=== PATIENT | male | born 1955 | race Caucasian/White ===

== ENCOUNTER 2019-02-09 08:14 | Inpatient (IN) | payer OTHER ==
[~2019-02-09] VITALS: Ht 170.2 cm; Wt 83.6 kg
[2019-02-09] MEDS ORDERED: LABETALOL 5MG/ML, 20ML IVPush STA (08:36)
--- NOTE | 2019-02-09 08:45 | NUR ---
Lala RN: MD Whitney at bedside to assess pt, pt reports inintal onset of symptoms as 1500 yesterday
[2019-02-09] MEDS ORDERED: LABETALOL 5MG/ML, 20ML ONE (08:57)
--- NOTE | 2019-02-09 09:15 | NUR ---
Break RN: Pt to CT in NAD, report to primary RN Sierra
[2019-02-09 09:24] LABS: BASOPHILS # (AUTO) 0.02 x10^3/uL (0-0.1); BASOPHILS % (AUTO) 0 % (0-1); EOSINOPHILS # (AUTO) 0.13 x10^3/uL (0-0.4); EOSINOPHILS % (AUTO) 1 % (1-7); LYMPHOCYTES # (AUTO) 1.27 x10^3/uL (1-3.4); LYMPHOCYTES % (AUTO) 12 % (22-44); MD NO; MEAN CORPUSCULAR HEMOGLOBIN 30.1 pg (27.5-34.5); MEAN CORPUSCULAR HGB CONC 33.7 g/dL (33.2-36.2); MEAN CORPUSCULAR VOLUME 89.5 fL (81-97); MEAN PLATELET VOLUME 9.1 fL (7.4-10.4); MONOCYTES # (AUTO) 0.51 x10^3/uL (0.2-0.8); MONOCYTES % (AUTO) 5 % (2-9); NEUTROPHILS # (AUTO) 8.72 x10^3/uL (1.8-6.8); NEUTROPHILS % (AUTO) 82 % (42-75); PLATELET COUNT 206 x10^3/uL (130-400); RED BLOOD COUNT 5.88 x10^6/uL (4.38-5.82); RED CELL DISTRIBUTION WIDTH 14.2 % (9.4-14.8)
[2019-02-09] MEDS ORDERED: SODIUM CHLORIDE FLUSH 10ML SYR IVF ONE (09:30)
[2019-02-09 09:34] LABS: INTERNATIONAL NORMALIZED RATIO 1.01 (0.93-1.1); PROTHROMBIN TIME 10.6 Seconds (9.6-11.5)
--- NOTE | 2019-02-09 09:54 | NUR ---
PATIENT RESTING IN BED, NO NEURO CHANGES
[2019-02-09] MEDS ORDERED: hydrALAzine 20 MG/ML, 1ML ONE (10:06)
[2019-02-09] MEDS ORDERED: ASPIRIN 325 MG TABLET ONE (10:12)
--- NOTE | 2019-02-09 10:14 | NUR ---
PATIENT TO MRI
[2019-02-09 10:23] LABS: CHLORIDE 107 mmol/L (98-107)
[2019-02-09 10:29] LABS: ANION GAP 7 mmol/L (5-15); CALCIUM 8.9 mg/dL (8.5-10.1)
[2019-02-09] MEDS ORDERED: ASPIRIN 325 MG TABLET PO ONE (10:30)
--- NOTE | 2019-02-09 10:55 | NUR ---
PATIENT STEADY AMBULATION UP TO BATHROOM.
[2019-02-09] MEDS ORDERED: hydrALAzine 20 MG/ML, 1ML IV ONE ×2 (11:00→11:30)
[2019-02-09] MEDS ORDERED: DOCUSATE 100 MG CAPSULE PO PRN (11:30)
[2019-02-09] MEDS ORDERED: LABETALOL 5MG/ML, 20ML IV PRN (11:30)
[2019-02-09] MEDS ORDERED: ONDANSETRON ODT 4 MG PO PRN (11:30)
[2019-02-09] MEDS ORDERED: ONDANSETRON 2MG/ML, 2ML IVPush PRN (11:30)
[2019-02-09] MEDS ORDERED: POLYETHYLENE GLYCOL 17 GM PACKET PO PRN (11:30)
[2019-02-09] MEDS ORDERED: ACETAMINOPHEN 650 MG/20.3 ML UDC PO PRN (11:30)
--- NOTE | 2019-02-09 11:37 | NUR ---
[facility] AT BEDSIDE TO DISCUSS POC
--- NOTE | 2019-02-09 11:44 | NUR ---
PATIENT TO IMAGING
--- NOTE | 2019-02-09 12:00 | NUR ---
PT RESTING IN BED, NO NEURO CHANGES
[2019-02-09] MEDS ORDERED: OMNIPAQUE 350 MG/ML, 100ML BOTTLE ONE (12:18)
[2019-02-09 12:59] LABS: HEMOGLOBIN A1C 6.2 % (4.2-6.3)
--- NOTE | 2019-02-09 13:00 | NUR ---
PATIENT STEADY AMBULATION TO BATHROOM. NO NEURO CHANGES.
--- NOTE | 2019-02-09 14:01 | NUR ---
REPORT CALLED TO SALAZAR GOLDMAN. PATIENT AND FAMILY AWARE OF TRANSFER. NO NEURO CHANGES.
[2019-02-09 14:52] VITALS: BP 177/121
[2019-02-09] MEDS ORDERED: LABETALOL 5 MG/ML SYR. (IV ONLY) IV PRN (15:30)
[2019-02-09 16:00] VITALS: BP 180/100
[2019-02-09 18:01] VITALS: BP 180/90
[2019-02-09 19:00] VITALS: BP 158/95
[2019-02-09] MEDS: ATORVASTATIN 40 MG TABLET PO SCH (20:22)
[2019-02-09 21:22] LABS: CULTURE INDICATED? NO; MICROSCOPIC NOT IND
[2019-02-09 22:46] VITALS: BP_SYST 179; BP_SYST 183; BP_DIAS 115; BP_DIAS 136
[2019-02-10] VITALS (7 sets, daily range): BP systolic 165–218; BP diastolic 78–146
[2019-02-10 05:16] LABS: BASOPHILS # (AUTO) 0.09 x10^3/uL (0-0.1); BASOPHILS % (AUTO) 1 % (0-1); EOSINOPHILS # (AUTO) 0.39 x10^3/uL (0-0.4); EOSINOPHILS % (AUTO) 3 % (1-7); LYMPHOCYTES % (AUTO) 16 % (22-44); MD NO; MEAN CORPUSCULAR HEMOGLOBIN 30.1 pg (27.5-34.5); MEAN CORPUSCULAR HGB CONC 33.1 g/dL (33.2-36.2); MEAN CORPUSCULAR VOLUME 90.9 fL (81-97); MEAN PLATELET VOLUME 9.4 fL (7.4-10.4); MONOCYTES # (AUTO) 0.71 x10^3/uL (0.2-0.8); MONOCYTES % (AUTO) 5 % (2-9); NEUTROPHILS # (AUTO) 9.99 x10^3/uL (1.8-6.8); NEUTROPHILS % (AUTO) 75 % (42-75); PLATELET COUNT 186 x10^3/uL (130-400); RED BLOOD COUNT 5.72 x10^6/uL (4.38-5.82); RED CELL DISTRIBUTION WIDTH 14.5 % (9.4-14.8)
[2019-02-10 05:23] LABS: ALBUMIN 3.8 g/dL (3.4-5.0); ANION GAP 6 mmol/L (5-15); CALCIUM 8.5 mg/dL (8.5-10.1); CHLORIDE 109 mmol/L (98-107)
[2019-02-10 05:26] LABS: ALANINE AMINOTRANSFERASE 28 U/L (12-78); ALKALINE PHOSPHATASE 67 U/L (45-117); BILIRUBIN,TOTAL 0.6 mg/dL (0.2-1.0); CHOLESTEROL, TOTAL 227 mg/dL (140-239); CREATININE 1.08 mg/dL (0.7-1.3); HDL CHOL % 17 % (26-37); HDL CHOLESTEROL (DIRECT) 38 mg/dL (40-60); LDL CHOLESTEROL,CALCULATED 159 mg/dL (54-169); LDL/HDL RATIO 4.2 (0.5-3.0); TOTAL PROTEIN 7.3 g/dL (6.4-8.2); TRIGLYCERIDES 150 mg/dL (50-200); VLDL CHOLESTEROL 30 mg/dL (0-25)
[2019-02-10] MEDS ORDERED: ASPIRIN 81 MG TABLET CHEW PO/NG SCH (09:00)
[2019-02-10] MEDS ORDERED: hydrALAzine 20 MG/ML, 1ML IV PRN (10:00)
[2019-02-10] MEDS: LISINOPRIL 10 MG TABLET PO SCH ×2 (10:16→18:45)
[2019-02-10] MEDS ORDERED: ATOR40TA78 PO (18:06)
[2019-02-10] MEDS ORDERED: LISI-170 PO (18:06)
[2019-02-10] MEDS ORDERED: ASPI-515 PO/NG (18:06)
[2019-02-10] MEDS ORDERED: CLOP75TA52 PO (18:10)
[2019-02-10] MEDS: ATORVASTATIN 40 MG TABLET PO SCH (18:44)
== END 2019-02-10 18:49 | disposition home or self-care (01) | DRG 66 ==
LOC: ED 08:58 → 4EST 11:24
PROVIDERS: ADMIT Family Medicine; ATTEND Internal Medicine
DX: I63.9 Cerebral infarction, unspecified (principal); R47.1 Dysarthria and anarthria; E78.5 Hyperlipidemia, unspecified; I10 Essential (primary) hypertension; I73.9 Peripheral vascular disease, unspecified; R29.810 Facial weakness; Z79.82 Long term (current) use of aspirin; Z82.3 Family history of stroke
CPT/HCPCS: 36415; 70450; 70496; 70498; 70551; 71045; 80048; 80053; 80061; 81003; 82040; 83036; 84145; 85025; 85610; 93005; 93306; 96374; 96375; 99291; G0378; Q9967; 92523-GN; J0360

== ENCOUNTER → 2020-01-23 | Outpatient (CLI) | payer MEDICARE ==
[~2020-01-23] MED LIST: ASPI-515 PO/NG; ATOR40TA78 PO; CLOP75TA52 PO; LISI-170 PO; REGADENOSON 0.4 MG/5 ML SYRINGE ONE
== END | disposition home or self-care (01) ==
LOC: CFH 07:48
PROVIDERS: ATTEND Internal Medicine Cardiovascular Disease
DX: I10 Essential (primary) hypertension (principal); R94.31 Abnormal electrocardiogram [ECG] [EKG]
CPT/HCPCS: 78452; 93017; A9502; J2785